=== PATIENT | male | born 1995 ===

== ENCOUNTER 2017-01-02 08:42 | Emergency (ER) | payer OTHER ==
[2017-01-02 08:56] VITALS: BP 134/84; PULSE 95; RESP 16; TEMP 98.2; O2SAT 98
[2017-01-02 08:57] VITALS: BMI 26.4
--- NOTE | 2017-01-02 09:47 | ED PDOC ---
HPI: Eye Injury/Pain Time Seen by Provider: 01/02/17 09:08 Chief Complaint (Nursing): Eye Problem Chief Complaint (Provider): Eye Problem History Per: Patient History/Exam Limitations: no limitations Wears Contact Lens?: Yes Additional Complaint(s): Sandor Jones, 21 year old male presents to the ED for bilateral eye pain occurring for 1 day prior to arrival. The patient also complains of increasing eye pain when looking at light and bilateral eye redness. He denies eye itchiness, discharge, sore throat, fever, chest pain, or neck pain. No numbness , tingles. Of note, the patient wears contact lenses. He removed his contact lenses yesterday morning upon eye pain onset. PMD: Joe Celis MD Past Medical History Reviewed: Historical Data, Nursing Documentation, Vital Signs Vital Signs: Last Vital Signs Temp 98.2 F 01/02/17 08:55 Pulse 95 H 01/02/17 08:55 Resp 16 01/02/17 08:55 BP 134/84 01/02/17 08:55 Pulse Ox 98 01/02/17 08:55 - Medical History PMH: Diabetes - Surgical History Surgical History: No Surg Hx - Family History Family History: States: Unknown Family Hx - Social History Current smoker - smoking cessation education provided: No Ex-Smoker (has not smoked in the last 12 months): No Alcohol: Social Drugs: Denies - Home Medications Home Medications: Ambulatory Orders Medication Instructions Recorded Insulin Aspart, Recombinant 8 - 10 unit SC TID 03/17/15 [Novolog] Insulin Detemir [Levemir] 44 unit SC HS 03/17/15 Clindamycin [Cleocin] 300 mg PO TID #30 cap 07/11/16 Tramadol HCl [Ultram] 50 mg PO Q6 #15 tab 07/11/16 Polymyxin/Trimethoprim Sulfate 2 drop BOTHEYES Q6H 7 Days 01/02/17 [Polytrim Ophth Soln] - Allergies Allergies/Adverse Reactions: Allergies Allergy/AdvReac Type Severity Reaction Status Date / Time No Known Allergies Allergy Verified 01/02/17 09:09 Review of Systems ROS Statement: Except As Marked, All Systems Reviewed And Found Negative Constitutional: Negative for: Fever Eyes: Positive for: Pain, Redness. Negative for: Vision Change, Eyelid Inflammation, Other (eye itchiness or discharge) ENT: Negative for: Throat Pain Cardiovascular: Negative for: Chest Pain Musculoskeletal: Negative for: Neck Pain Physical Exam - Reviewed Nursing Documentation Reviewed: Yes Vital Signs Reviewed: Yes - Physical Exam Appears: Positive for: Non-toxic, No Acute Distress Head Exam: Positive for: ATRAUMATIC, NORMAL INSPECTION, NORMOCEPHALIC Skin: Positive for: Normal Color, Warm, DRY Eye Exam: Positive for: EOMI, PERRL (PERRLA), Conjunctival injection, Other ( eye injection bilaterally; no discharge; full ROM of eyes with no issues.). Negative for: Periorbital swelling, Periorbital tenderness ENT: Positive for: Normal ENT Inspection. 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 B/L injection. Pain free. Tolerates po. AAOx3. Vision reduced due to watery eyes. Medical Decision Making Medical Decision Making: Impression: Bilateral eye redness and pain Plan: * Motrin Tab 600 mg PO Stat * Reevaluation Scribe Attestation: Documented by Zora Akers, acting as a scribe for Orlin Logan MD. Provider Scribe Attestation: All medical record entries made by the Scribe were at my direction and personally dictated by me. I have reviewed the chart and agree that the record accurately reflects my personal performance of the history, physical exam, medical decision making, and the department course for this patient. I have also personally directed, reviewed, and agree with the discharge instructions and disposition. Disposition - Clinical Impression Clinical Impression: Conjunctivitis - Patient ED Disposition Is Patient to be Admitted: No Counseled Patient/Family Regarding: Studies Performed, Diagnosis, Need For Followup, Rx Given - Disposition [facility] - 01/[facility]17 Disposition: Routine/Home Disposition Time: 10:00 Condition: STABLE Additional Instructions: Return if not better in 3 days. Prescriptions: Polymyxin/Trimethoprim Sulfate [Polytrim Ophth Soln] 2 drop BOTHEYES Q6H 7 Days Instructions: Conjunctivitis (ED) Forms: [facility] (Armenian), [facility] ED School/Work Excuse
== END 2017-01-02 11:12 | disposition home or self-care (01) ==
LOC: H.ER 08:42
DX: H10.9 Unspecified conjunctivitis (principal); E11.9 Type 2 diabetes mellitus without complications; Z79.4 Long term (current) use of insulin

== ENCOUNTER 2017-01-21 13:29 | Emergency (ER) | payer MEDICAID, OTHER ==
[2017-01-21 13:29] VITALS: BMI 26.4
[2017-01-21 13:40] VITALS: O2SAT 98
[2017-01-21] MEDS ORDERED: Sodium Chloride 0.9% 1,000 ML IV STA (14:02)
[2017-01-21] MEDS ORDERED: Vancomycin 1 g Inj ONE (14:26)
[2017-01-21 14:54] LABS: BASO # 0.1 K/uL (0.0-0.2); BASO % 1.1 % (0.0-2.0); EOS % 0.4 % (0.0-4.0); HEMATOCRIT 46.2 % (35.0-51.0); LYMPH # 2.5 K/uL (1.0-4.3); LYMPH % 31.5 % (20.0-40.0); MEAN CELL VOLUME 81.1 fl (80.0-94.0); MEAN CORPUSCULAR HGB CONC 34.5 g/dL (33.0-37.0); MEAN PLATELET VOLUME 8.9 fl (7.2-11.7); MONO # 0.7 K/uL (0.0-0.8); MONO % 9.2 % (0.0-10.0); NEUT # 4.6 K/uL (1.8-7.0); NEUT % 57.8 % (50.0-75.0); RED CELL DISTRIBUTION WIDTH 12.1 % (11.5-14.5); WHITE BLOOD COUNT 7.9 K/uL (4.8-10.8)
[2017-01-21 15:06] LABS: ALB/GLOB RATIO 1.4 (1.0-2.1); ALKALINE PHOSPHATASE 144 U/L (38-126); ALT/SGPT 36 U/L (21-72); AST/SGOT 22 U/L (17-59); BILIRUBIN,TOTAL 0.9 mg/dl (0.2-1.3); BLOOD UREA NITROGEN 19 mg/dl (9-20); CALCIUM 9.3 mg/dL (8.4-10.2); CARBON DIOXIDE 26 mmol/L (22-30); CHLORIDE 97 mmol/L (98-107); GFR AFRICAN-AMERICAN > 60; GLUCOSE,RANDOM 285 mg/dL (75-110); POTASSIUM 3.9 MMOL/L (3.6-5.0); SODIUM 133 mmol/l (132-148); TOTAL PROTEIN 7.2 G/DL (6.3-8.2)
--- NOTE | 2017-01-21 15:18 | ED PDOC ---
HPI: General Adult Time Seen by Provider: 01/21/17 13:47 Chief Complaint (Nursing): Abnormal Skin Integrity Chief Complaint (Provider): Rash History Per: Patient History/Exam Limitations: no limitations Onset/Duration Of Symptoms: Days Have you had recent travel within the past 21 days to any of the following countries: [place], [place], [place] or [place]?: No Additional History Per: Patient Additional Complaint(s): The patient is a 21yo male, hx of DM, presents to the ED for evaluation of painful rash present in his groin for the past few days. He denies any other medical complaints. Past Medical History Reviewed: Historical Data, Nursing Documentation, Vital Signs Vital Signs: Last Vital Signs Temp 98.6 F 01/21/17 17:00 Pulse 88 01/21/17 17:00 Resp 16 01/21/17 17:00 BP 128/78 01/21/17 17:00 Pulse Ox 98 01/21/17 17:00 - Medical History PMH: Diabetes - Surgical History Surgical History: No Surg Hx - Family History Family History: States: Unknown Family Hx - Home Medications Home Medications: Ambulatory Orders Medication Instructions Recorded Insulin Aspart, Recombinant 8 - 10 unit SC TID 03/17/15 [Novolog] Insulin Detemir [Levemir] 44 unit SC HS 03/17/15 Clindamycin [Cleocin] 300 mg PO TID #30 cap 07/11/16 Tramadol HCl [Ultram] 50 mg PO Q6 #15 tab 07/11/16 Polymyxin/Trimethoprim Sulfate 2 drop BOTHEYES Q6H 7 Days 01/02/17 [Polytrim Ophth Soln] Naproxen [Naprosyn] 500 mg PO BID PRN #15 tablet 01/21/17 Sulfamethoxazole/Trimethoprim 1 tab PO BID #14 tab 01/21/17 [Bactrim DS 800 mg-160 mg] - Allergies Allergies/Adverse Reactions: Allergies Allergy/AdvReac Type Severity Reaction Status Date / Time No Known Allergies Allergy Verified 01/02/17 09:09 Review of Systems ROS Statement: Except As Marked, All Systems Reviewed And Found Negative Skin: Positive for: Rash Physical Exam - Reviewed Nursing Documentation Reviewed: Yes Vital Signs Reviewed: Yes - Physical Exam Appears: Positive for: Well, Non-toxic, No Acute Distress Head Exam: Positive for: ATRAUMATIC, NORMAL INSPECTION, NORMOCEPHALIC Skin: Positive for: Normal Color, Warm, Rash (few erythematous areas around hair follicles in groing. no vesicles. no discharge) Eye Exam: Positive for: Normal appearance Neck: Positive for: Normal Respiratory: Negative for: Respiratory Distress Neurologic/Psych: Positive for: Alert, Oriented. Negative for: Motor/Sensory Deficits - Laboratory Results Result Diagrams: 01/21/17 14:45 01/21/17 14:45 - ECG O2 Sat by Pulse Oximetry: 98 (RA) Pulse Ox Interpretation: Normal Medical Decision Making Medical Decision Making: Time: 1400 Impression: Folliculitis Plan: -- IV Fluids -- Vancomycin 1 g IV Reassess Time: 1550 Patient complaining of itching and redness to his face. Vancomycin stopped and Benadryl given. Scribe Attestation: Documented by Liya Martinez acting as a scribe for Nuha Jhaveri MD. Provider Attestation: All medical record entries made by the Scribe were at my direction and personally dictated by me. I have reviewed the chart and agree that the record accurately reflects my personal performance of the history, physical exam, medical decision making, and the department course for this patient. I have also personally directed, reviewed, and agree with the discharge instructions and disposition. Disposition - Clinical Impression Clinical Impression: Folliculitis, Hyperglycemia due to type 1 diabetes mellitus - Disposition Referrals: Aleksander Troy MD [Staff Provider] - Disposition: Routine/Home Disposition Time: 15:30 Condition: STABLE Prescriptions: Naproxen [Naprosyn] 500 mg PO BID PRN #15 tablet PRN Reason: Pain, Moderate (4-7) Sulfamethoxazole/Trimethoprim [Bactrim DS 800 mg-160 mg] 1 tab PO BID #14 tab Instructions: Folliculitis (ED), Diabetic Hyperglycemia (ED) Forms: [employer] (Honduran)
[2017-01-21] MEDS ORDERED: DiphenhydrAMINE 50 mg/ml Inj ONE (15:50)
[2017-01-21 15:53] VITALS: PULSE 88
[2017-01-21] MEDS ORDERED: DiphenhydrAMINE 50 mg/ml Inj IVP STA (16:00)
[2017-01-21 17:01] VITALS: BP 128/78; RESP 16; TEMP 98.6
== END 2017-01-21 17:01 | disposition home or self-care (01) ==
LOC: H.ER 13:29
DX: E11.65 Type 2 diabetes mellitus with hyperglycemia (principal); L73.9 Follicular disorder, unspecified; Z79.4 Long term (current) use of insulin
CPT/HCPCS: 80053; 82948; 85025; 87040; 96365; 96375; 99282; J1200; J7040

== ENCOUNTER 2017-01-31 17:56 | Emergency (ER) | payer MEDICAID, OTHER ==
[2017-01-31 17:56] VITALS: BMI 26.4
[2017-01-31 18:12] VITALS: BP 129/77; PULSE 89; RESP 16; TEMP 98.1; O2SAT 99
[2017-01-31 20:21] LABS: BASO # 0.1 K/uL (0.0-0.2); BASO % 0.7 % (0.0-2.0); EOS # 0.1 K/uL (0.0-0.7); EOS % 0.9 % (0.0-4.0); HEMATOCRIT 46.1 % (35.0-51.0); LYMPH % 27.1 % (20.0-40.0); MEAN CELL VOLUME 82.9 fl (80.0-94.0); MEAN CORPUSCULAR HEMOGLOBIN 27.5 pg (27.0-31.0); MEAN CORPUSCULAR HGB CONC 33.1 g/dL (33.0-37.0); MEAN PLATELET VOLUME 8.6 fl (7.2-11.7); MONO # 0.8 K/uL (0.0-0.8); MONO % 11.1 % (0.0-10.0); NEUT # 4.5 K/uL (1.8-7.0); NEUT % 60.2 % (50.0-75.0); NRBC % 0.1 % (0.0-0.0); RED CELL DISTRIBUTION WIDTH 12.7 % (11.5-14.5); WHITE BLOOD COUNT 7.4 K/uL (4.8-10.8)
[2017-01-31 20:30] LABS: ALB/GLOB RATIO 1.3 (1.0-2.1); ALKALINE PHOSPHATASE 124 U/L (38-126); ALT/SGPT 53 U/L (21-72); AST/SGOT 32 U/L (17-59); BILIRUBIN,TOTAL 0.4 mg/dl (0.2-1.3); BLOOD UREA NITROGEN 14 mg/dl (9-20); CALCIUM 9.2 mg/dL (8.4-10.2); CARBON DIOXIDE 28 mmol/L (22-30); CHLORIDE 101 mmol/L (98-107); GFR AFRICAN-AMERICAN > 60; GLUCOSE,RANDOM 179 mg/dL (75-110); POTASSIUM 3.8 MMOL/L (3.6-5.0); SODIUM 138 mmol/l (132-148); TOTAL PROTEIN 6.6 G/DL (6.3-8.2)
--- NOTE | 2017-01-31 20:53 | ED PDOC ---
HPI: Male Pain Time Seen by Provider: 01/31/17 19:10 Chief Complaint (Nursing): Groin Pain Chief Complaint (Provider): Testicular Pain History Per: Patient History/Exam Limitations: no limitations Onset/Duration Of Symptoms: Other (x1 year) Current Symptoms Are (Timing): Still Present Quality Of Discomfort: "Pain" Additional Complaint(s): Sandor Jones, a 21 year old male, who has past medical history of type 1 diabetes presents to the ED with foreskin pain x1 year. The patient states that for 1 year he has also not been able to retract his foreskin. He states that he saw a urologist a yr ago who told him he needed a circumcision but he never followed up. also has a left varicococele that needs surgery. Patient notes some swelling and tenderness to foreskin along with some dysuria. Denies fever abdominal pain and vomiting. Past Medical History Reviewed: Historical Data, Nursing Documentation, Vital Signs Vital Signs: Last Vital Signs Temp 98.1 F 01/31/17 18:09 Pulse 89 01/31/17 18:09 Resp 16 01/31/17 18:09 BP 129/77 01/31/17 18:09 Pulse Ox 99 01/31/17 18:09 - Medical History PMH: Diabetes (insulin dependent) - Surgical History Surgical History: No Surg Hx - Family History Family History: States: Unknown Family Hx - Social History Current smoker - smoking cessation education provided: No Alcohol: None Drugs: Denies - Home Medications Home Medications: Ambulatory Orders Medication Instructions Recorded Insulin Aspart, Recombinant 8 - 10 unit SC TID 03/17/15 [Novolog] Insulin Detemir [Levemir] 44 unit SC HS 03/17/15 Clindamycin [Cleocin] 300 mg PO TID #30 cap 07/11/16 Tramadol HCl [Ultram] 50 mg PO Q6 #15 tab 07/11/16 Polymyxin/Trimethoprim Sulfate 2 drop BOTHEYES Q6H 7 Days 01/02/17 [Polytrim Ophth Soln] Naproxen [Naprosyn] 500 mg PO BID PRN #15 tablet 01/21/17 Sulfamethoxazole/Trimethoprim 1 tab PO BID #14 tab 01/21/17 [Bactrim DS 800 mg-160 mg] Cephalexin [cephalexin] 500 mg PO QID #28 cap 01/31/17 Sulfamethoxazole/Trimethoprim 1 tab PO BID #14 tab 01/31/17 [Bactrim DS 800 mg-160 mg] - Allergies Allergies/Adverse Reactions: Allergies Allergy/AdvReac Type Severity Reaction Status Date / Time vancomycin Allergy RASH Verified 01/31/17 18:08 Review of Systems ROS Statement: Except As Marked, All Systems Reviewed And Found Negative Constitutional: Negative for: Fever Gastrointestinal: Negative for: Vomiting, Abdominal Pain Genitourinary Male: Positive for: Other (Testicular pain) Physical Exam - Reviewed Nursing Documentation Reviewed: Yes Vital Signs Reviewed: Yes - Physical Exam Appears: Positive for: Non-toxic, No Acute Distress Head Exam: Positive for: ATRAUMATIC, NORMAL INSPECTION, NORMOCEPHALIC Skin: Positive for: Normal Color, Warm, Dry Cardiovascular/Chest: Positive for: Regular Rate, Rhythm, Chest Non Tender. Negative for: Murmur, Tachycardia Respiratory: Positive for: Normal Breath Sounds. Negative for: Rales, Rhonchi, Wheezing, Respiratory Distress Gastrointestinal/Abdominal: Positive for: Normal Exam, Bowel Sounds, Soft. 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 Negative for: L CVA Tenderness, R CVA Tenderness Extremity: Positive for: Normal ROM. Negative for: Tenderness, Pedal Edema, Calf Tenderness, Deformity, Swelling Neurologic/Psych: Positive for: Alert, Oriented - Laboratory Results Result Diagrams: 01/31/17 20:08 01/31/17 20:08 - ECG O2 Sat by Pulse Oximetry: 99 (RA) Pulse Ox Interpretation: Normal Medical Decision Making Medical Decision Makin initial impression: 21 year old male presenting with foreskin irriation Initial Plan: * Comp Metabolic Panel * CBC * Blood Culture * Urine Culture * Urinalysis * Reevaluation 2200 Patient is afebrile and feels better but sugar slightly elevated. Rest of labs normal. White count normal. Patient encouraged to follow up with urology in next 2 days as it is important that this chronic issue be addressed. First dose of antibiotics given and patient will be sent home with oral antibiotics. Urine nosigns of infection. pt eating and comfortably Scribe Attestation Documented by Radha Zuluaga acting as a scribe for Vianey Rios MD. Provider Attestation All medical record entries made by the Scribe were at my direction and personally dictated by me. I have reviewed the chart and agree that the record accurately reflects my personal performance of the history, physical exam, medical decision making, and the department course for this patient. I have also personally directed, reviewed, and agree with the discharge instructions and disposition. Disposition - Clinical Impression Clinical Impression: Hyperglycemia, Skin infection - Patient ED Disposition Is Patient to be Admitted: No Counseled Patient/Family Regarding: Studies Performed, Diagnosis, Need For Followup - Disposition Referrals: [facility] [Outside] Jonathon Dominguez MD [Staff Provider] - Disposition: Routine/Home Disposition Time: 21:45 Condition: IMPROVED Additional Instructions: follow up with UROLOGIST in 1-2 days without fail take motrin for pain return to the ED with any worsening or concerning symptoms. Prescriptions: Cephalexin [cephalexin] 500 mg PO QID #28 cap Sulfamethoxazole/Trimethoprim [Bactrim DS 800 mg-160 mg] 1 tab PO BID #14 tab Instructions: Cellulitis (ED), Abrasion (ED) Forms: [facility] (Lao), [facility] ED School/Work Excuse
[2017-01-31 20:55] LABS: RBC URINE 2 /hpf (0-3); URINE BACTERIA RARE (<OCC); URINE BILIRUBIN NEGATIVE (NEGATIVE); URINE BLOOD NEGATIVE (NEGATIVE); URINE COLOR YELLOW (YELLOW); URINE GLUCOSE (UA) >=500 mg/dL (Normal); URINE KETONE NEGATIVE (NEGATIVE); URINE LEUKOCYTE ESTERASE NEG Leu/uL (Negative); URINE PROTEIN NEGATIVE (NEGATIVE); URINE UROBILINOGEN 0.2-1.0 mg/dL (0.2-1.0); WBC URINE 1 /hpf (0-5)
[2017-01-31] MEDS ORDERED: Tmp-Smz 800 mg-160 mg DS Tab PO STA (22:11)
[2017-01-31] MEDS ORDERED: Bacitracin 500 Units/gm Oint Foilpak UD ONE (22:12)
== END 2017-01-31 22:59 | disposition home or self-care (01) ==
LOC: H.ER 17:56
DX: L08.9 Local infection of the skin and subcutaneous tissue, unspecified (principal); E10.65 Type 1 diabetes mellitus with hyperglycemia; Z79.4 Long term (current) use of insulin